=== PATIENT | female | born 2000 | race Caucasian/White ===

== ENCOUNTER 2021-08-11 21:03 | Emergency (ER) | payer OTHER ==
[2021-08-11] MEDS ORDERED: Lidocaine 1% w/Epinephrine 1:100K 20 ML VIAL ONE (21:25)
[2021-08-11] MEDS ORDERED: Lidocaine/Transparent Dressing 1 EACH KIT ONE (21:39)
[2021-08-11] MEDS ORDERED: Bacitracin 1 PK ONE (23:15)
== END 2021-08-11 23:21 | disposition home or self-care (01) ==
LOC: CSHERS 21:03
DX: S01.111A Laceration without foreign body of right eyelid and periocular area, initial encounter (principal); V43.62XA Car passenger injured in collision with other type car in traffic accident, initial encounter
CPT/HCPCS: 12013